=== PATIENT | male | born 1945 | race African-American/Black ===

== ENCOUNTER 2019-03-21 14:34 | Inpatient (IN) ==
[2019-03-21] MEDS ORDERED: DEXTROSE 50% 25 GM/50 ML VIAL IV PRN (18:53)
[2019-03-21] MEDS ORDERED: GLUCAGON 1 MG VIAL IM PRN (18:53)
[2019-03-21] MEDS ORDERED: ALBUTEROL/IPRATROPIUM 3 ML NEB RESP TX PRN (18:59)
[2019-03-21] MEDS ORDERED: SODIUM CHLORIDE 0.9% 1,000 ML IV SCH (19:00)
[2019-03-21] MEDS: ALBUTEROL 2.5 MG/3 ML NEB RESP TX SCH (19:24)
[2019-03-21] MEDS ORDERED: cefTRIAXone 1,000 MG in SYRINGE 1 EACH IV SCH (20:00)
[2019-03-21] MEDS ORDERED: AZITHROMYCIN INJ 500 MG in SODIUM CHLORIDE 0.9% 250 ML IV SCH (21:00)
[2019-03-21] MEDS: ACETAMINOPHEN 325 MG TABLET PO PRN (21:57)
[2019-03-21] MEDS: DOCUSATE SODIUM 100 MG CAPSULE PO SCH (21:58)
[2019-03-21] MEDS: INSULIN REGULAR 100 UNIT/ML SUBCUT SCH (21:59)
[2019-03-22] MEDS: ALBUTEROL 2.5 MG/3 ML NEB RESP TX SCH ×4 (00:44→19:46)
[2019-03-22] MEDS: ACETAMINOPHEN 325 MG TABLET PO PRN ×2 (01:31→07:45)
[2019-03-22 05:41] LABS: Basophils % 0.4 % (0.0-0.8); Eosinophils # 0.1 10*3/uL (0.0-0.87); Eosinophils % 1.4 % (0.00-10.9); Hematocrit 34.2 VOL% (42.0-52.0); Hemoglobin 10.9 GM/DL (14.0-18.0); Immature Granulocytes % 0.9 %; Immature Granulocytes Absolute 0.09 #; Lymphocytes # 2.2 10*3/uL (1.4-4.0); Lymphocytes % 22.1 % (21.2-54.2); Mean Corpuscular HGB Conc 31.9 GM/DL (32-36); Mean Corpuscular Volume 90.7 FL (87-102); Mean Platelet Volume 9.6 FL (9.6-12.0); Monocytes % 16.6 % (1.7-12.7); Neutrophils % 58.6 % (38.7-73.9); Platelet Count 191 T/CUMM (130-400); Red Blood Count 3.77 MC/CUMM (3.8-5.5); Red Cell Distribution Width 13.5 % (9.3-17.3); White Blood Count 9.9 T/CUMM (4-12)
[2019-03-22 06:15] LABS: Calcium 8.4 MG/DL (8.5-10.1); Osmolality,Calculated 277.5 MOS/KG (273-304)
[2019-03-22 06:35] LABS: Eosinophils 2 % (0-10); Lymphocytes 27 % (20-55); Metamyelocytes 2 %; Myelocytes 1 %; Platelet Estimate Adequate; Segmented Neutrophils 57 % (50-85); Total Cells Counted 100
[2019-03-22 06:36] LABS: Hypochromasia Slight
[2019-03-22] MEDS: INSULIN REGULAR 100 UNIT/ML SUBCUT SCH ×4 (07:27→22:06)
[2019-03-22] MEDS: ONDANSETRON 4 MG/2 ML VIAL IV PRN (07:44)
[2019-03-22] MEDS: PANTOPRAZOLE 40 MG TABLET PO SCH (08:58)
[2019-03-22] MEDS: POTASSIUM CHLORIDE 20 MEQ TABLET PO PRN ×4 (08:58→16:44)
[2019-03-22] MEDS: DOCUSATE SODIUM 100 MG CAPSULE PO SCH ×2 (08:59→22:01)
[2019-03-22] MEDS: ENOXAPARIN 40 MG/0.4 ML SYRINGE SUBCUT SCH (08:59)
[2019-03-22] MEDS: LEVOFLOXACIN INJ 750 MG in PREMIX 1 EACH IV SCH (08:59)
[2019-03-22] MEDS: traMADol 50 MG TABLET PO PRN ×2 (11:45→19:16)
[2019-03-22] MEDS: POLYETHYLENE GLYCOL POWDER 17 GM PACK PO SCH (11:45)
[2019-03-22] MEDS: FLUTICASONE 50 MCG NASAL SPRAY 16 GM BOTTLE BOTH NARES SCH ×2 (11:45→22:01)
[2019-03-22 13:27] LABS: Apearance,Urine CLEAR (Clear); Bilirubin,Urine Negative (Negative); Blood, Urine Small mg/dL (Negative); Glucose,Urine (UA) Negative (Negative); Ketones,Urine Negative (Negative); Mucus,Urine Occasional /LPF (Occasional); Nitrite,Urine Negative (Negative); Protein,Urine Negative; RBC,Urine 4 /HPF (0-4); Urine Color Yellow (Yellow); Urine Specific Gravity 1.014 (1.001-1.035); WBC,Urine <1 /HPF (0-6)
[2019-03-22] MEDS: metFORMIN 500 MG TABLET PO SCH (22:01)
[2019-03-22] MEDS: GABAPENTIN 300 MG CAPSULE PO SCH (22:01)
[2019-03-23] MEDS: ALBUTEROL 2.5 MG/3 ML NEB RESP TX SCH ×4 (01:11→19:15)
[2019-03-23 05:06] LABS: Basophils % 0.5 % (0.0-0.8); Eosinophils # 0.2 10*3/uL (0.0-0.87); Eosinophils % 2.6 % (0.00-10.9); Hematocrit 34.8 VOL% (42.0-52.0); Hemoglobin 11.1 GM/DL (14.0-18.0); Immature Granulocytes % 3.8 %; Immature Granulocytes Absolute 0.33 #; Lymphocytes # 2.6 10*3/uL (1.4-4.0); Lymphocytes % 29.5 % (21.2-54.2); Mean Corpuscular HGB Conc 31.9 GM/DL (32-36); Mean Corpuscular Volume 90.4 FL (87-102); Mean Platelet Volume 9.4 FL (9.6-12.0); Monocytes % 16.9 % (1.7-12.7); NRBC # 0.02 10*3/uL; Neutrophils % 46.7 % (38.7-73.9); Platelet Count 211 T/CUMM (130-400); Red Blood Count 3.85 MC/CUMM (3.8-5.5); Red Cell Distribution Width 13.5 % (9.3-17.3); White Blood Count 8.7 T/CUMM (4-12)
[2019-03-23 05:19] LABS: Calcium 8.6 MG/DL (8.5-10.1); Osmolality,Calculated 273.7 MOS/KG (273-304)
[2019-03-23 05:23] LABS: Albumin 2.9 G/DL (3.4-5.0); Bilirubin,Total 0.5 MG/DL (0.2-1.0); Calcium 8.9 MG/DL (8.5-10.1); Osmolality,Calculated 273.7 MOS/KG (273-304)
[2019-03-23 05:45] LABS: Anisocytosis 1+; Band Neutrophils 3 % (0-10); Eosinophils 2 % (0-10); Lymphocytes 26 % (20-55); Nucleated Red Blood Cells 1 (0-5); Platelet Estimate Normal; Segmented Neutrophils 54 % (50-85); Total Cells Counted 100
[2019-03-23] MEDS: INSULIN REGULAR 100 UNIT/ML SUBCUT SCH ×4 (09:34→21:08)
[2019-03-23] MEDS: metFORMIN 500 MG TABLET PO SCH ×2 (09:35→21:09)
[2019-03-23] MEDS: PANTOPRAZOLE 40 MG TABLET PO SCH (09:35)
[2019-03-23] MEDS: DOCUSATE SODIUM 100 MG CAPSULE PO SCH ×2 (09:35→21:09)
[2019-03-23] MEDS: ATENOLOL 50 MG TABLET PO SCH (09:35)
[2019-03-23] MEDS: POTASSIUM CHLORIDE 20 MEQ TABLET PO PRN ×3 (09:35→14:47)
[2019-03-23] MEDS: ENOXAPARIN 40 MG/0.4 ML SYRINGE SUBCUT SCH (09:35)
[2019-03-23] MEDS: LEVOFLOXACIN INJ 750 MG in PREMIX 1 EACH IV SCH (09:36)
[2019-03-23] MEDS: FLUTICASONE 50 MCG NASAL SPRAY 16 GM BOTTLE BOTH NARES SCH ×2 (09:36→21:09)
[2019-03-23] MEDS: POLYETHYLENE GLYCOL POWDER 17 GM PACK PO SCH (09:36)
[2019-03-23] MEDS: NAPROXEN 500 MG TABLET PO PRN (09:54)
[2019-03-23] MEDS ORDERED: hydrALAZINE 20 MG/1 ML VIAL IV PRN (12:34)
[2019-03-23] MEDS: ONDANSETRON 4 MG/2 ML VIAL IV PRN (14:47)
[2019-03-23] MEDS: GABAPENTIN 300 MG CAPSULE PO SCH (21:09)
[2019-03-24] MEDS: ALBUTEROL 2.5 MG/3 ML NEB RESP TX SCH ×4 (00:40→19:38)
[2019-03-24] MEDS: ONDANSETRON 4 MG/2 ML VIAL IV PRN (04:48)
[2019-03-24 05:57] LABS: Basophils % 0.4 % (0.0-0.8); Eosinophils # 0.4 10*3/uL (0.0-0.87); Eosinophils % 4.7 % (0.00-10.9); Hematocrit 37.4 VOL% (42.0-52.0); Hemoglobin 11.8 GM/DL (14.0-18.0); Immature Granulocytes % 4.5 %; Immature Granulocytes Absolute 0.35 #; Lymphocytes # 2.9 10*3/uL (1.4-4.0); Lymphocytes % 37.4 % (21.2-54.2); Mean Corpuscular HGB Conc 31.6 GM/DL (32-36); Mean Corpuscular Volume 90.8 FL (87-102); Mean Platelet Volume 8.9 FL (9.6-12.0); Monocytes % 11.9 % (1.7-12.7); NRBC # 0.04 10*3/uL; Neutrophils % 41.1 % (38.7-73.9); Platelet Count 248 T/CUMM (130-400); Red Blood Count 4.12 MC/CUMM (3.8-5.5); Red Cell Distribution Width 13.6 % (9.3-17.3); White Blood Count 7.7 T/CUMM (4-12)
[2019-03-24 06:15] LABS: Calcium 9.3 MG/DL (8.5-10.1); Osmolality,Calculated 280.1 MOS/KG (273-304)
[2019-03-24] MEDS: INSULIN REGULAR 100 UNIT/ML SUBCUT SCH ×4 (07:29→22:38)
[2019-03-24] MEDS: metFORMIN 500 MG TABLET PO SCH ×2 (08:49→20:46)
[2019-03-24] MEDS: PANTOPRAZOLE 40 MG TABLET PO SCH (08:49)
[2019-03-24] MEDS: DOCUSATE SODIUM 100 MG CAPSULE PO SCH ×2 (08:49→20:46)
[2019-03-24] MEDS: ATENOLOL 50 MG TABLET PO SCH (08:49)
[2019-03-24] MEDS: ENOXAPARIN 40 MG/0.4 ML SYRINGE SUBCUT SCH (08:50)
[2019-03-24] MEDS: POLYETHYLENE GLYCOL POWDER 17 GM PACK PO SCH (08:50)
[2019-03-24] MEDS: LEVOFLOXACIN INJ 750 MG in PREMIX 1 EACH IV SCH (08:50)
[2019-03-24] MEDS: FLUTICASONE 50 MCG NASAL SPRAY 16 GM BOTTLE BOTH NARES SCH ×2 (08:50→20:46)
[2019-03-24] MEDS: NAPROXEN 500 MG TABLET PO PRN (13:18)
[2019-03-24] MEDS: GABAPENTIN 300 MG CAPSULE PO SCH (20:46)
[2019-03-25] MEDS: ALBUTEROL 2.5 MG/3 ML NEB RESP TX SCH ×2 (00:49→07:19)
[2019-03-25 05:15] LABS: Calcium 9.3 MG/DL (8.5-10.1); Osmolality,Calculated 278.4 MOS/KG (273-304)
[2019-03-25 05:19] LABS: Basophils # 0.1 10*3/uL (0.0-0.2); Basophils % 0.6 % (0.0-0.8); Eosinophils # 0.4 10*3/uL (0.0-0.87); Eosinophils % 4.6 % (0.00-10.9); Hematocrit 36.9 VOL% (42.0-52.0); Immature Granulocytes % 6.2 %; Immature Granulocytes Absolute 0.54 #; Lymphocytes # 3.3 10*3/uL (1.4-4.0); Lymphocytes % 37.4 % (21.2-54.2); Mean Corpuscular HGB Conc 32.5 GM/DL (32-36); Mean Corpuscular Volume 89.6 FL (87-102); Mean Platelet Volume 9.2 FL (9.6-12.0); Monocytes % 9.3 % (1.7-12.7); NRBC # 0.02 10*3/uL; Neutrophils % 41.9 % (38.7-73.9); Platelet Count 299 T/CUMM (130-400); Red Blood Count 4.12 MC/CUMM (3.8-5.5); Red Cell Distribution Width 13.5 % (9.3-17.3); White Blood Count 8.7 T/CUMM (4-12)
[2019-03-25 06:02] LABS: Band Neutrophils 5 % (0-10); Eosinophils 3 % (0-10); Lymphocytes 38 % (20-55); Platelet Estimate Normal; Segmented Neutrophils 47 % (50-85); Total Cells Counted 100
[2019-03-25] MEDS: ONDANSETRON 4 MG/2 ML VIAL IV PRN (06:52)
[2019-03-25] MEDS: INSULIN REGULAR 100 UNIT/ML SUBCUT SCH (07:11)
[2019-03-25 07:25] VITALS: BP 162/74
[2019-03-25] MEDS: POLYETHYLENE GLYCOL POWDER 17 GM PACK PO SCH (08:54)
[2019-03-25] MEDS: FLUTICASONE 50 MCG NASAL SPRAY 16 GM BOTTLE BOTH NARES SCH (08:54)
[2019-03-25] MEDS: metFORMIN 500 MG TABLET PO SCH (08:54)
[2019-03-25] MEDS: ATENOLOL 50 MG TABLET PO SCH (08:54)
[2019-03-25] MEDS: DOCUSATE SODIUM 100 MG CAPSULE PO SCH (08:55)
[2019-03-25] MEDS: PANTOPRAZOLE 40 MG TABLET PO SCH (08:55)
[2019-03-25] MEDS ORDERED: LISINOPRIL 10 MG TABLET PO SCH (09:00)
[2019-03-25] MEDS: LEVOFLOXACIN INJ 750 MG in PREMIX 1 EACH IV SCH (09:40)
[2019-03-25] MEDS: ENOXAPARIN 40 MG/0.4 ML SYRINGE SUBCUT SCH (09:40)
== END 2019-03-25 10:34 | disposition home or self-care (01) | DRG 194 ==
LOC: SUATTDRO 17:14 → N.2E 17:14
PROVIDERS: ADMIT Internal Medicine; ATTEND Internal Medicine